=== PATIENT | male | born 1980 | race Caucasian/White ===

== ENCOUNTER → 2023-05-05 15:35 | Outpatient (CLI) | payer OTHER, MEDICAID, SELFPAY ==
--- NOTE | 2023-05-05 | DI.MRI.S_ITS ---
PROCEDURE: MR SHOULDER RT WO CON INDICATIONS: Impingement syndrome of right shoulder TECHNIQUE: Noncontrast oblique coronal T2 fast spin echo with fat saturation, oblique sagittal T1 spin echo and T2 fast spin echo with fat saturation, axial T1 spin echo and T2 fast spin echo with fat saturation through the shoulder. COMPARISON: None. FINDINGS: Image quality: Excellent. Rotator cuff: Low-grade articular and bursal surface partial thickness tear involving distal supraspinatus at its insertion on the humeral head is seen extending to musculotendinous junction. Distal infraspinatus tendinosis is noted. Low-grade intrasubstance partial-thickness tear involving distal subscapularis is seen. No full-thickness rotator cuff tendon rupture. Sagittal images demonstrate no rotator cuff muscle atrophy. Bones and bursae: No bone marrow contusions or fractures. Mild to moderate acromioclavicular joint osteoarthritic changes are seen with joint space narrowing and downward osteophyte formation depressing the musculotendinous junction of supraspinatus. The acromion demonstrates conventional anatomy, without an os acromiale. Small amount of joint effusion and subacromial subdeltoid bursal fluid is seen. No gross loose bodies. Capsule and soft tissues: There is signal abnormality and contour irregularity involving superior anterior labrum at 12 to 2 o'clock position consistent with superior anterior labral tear. Subtle signal abnormality and contour irregularity involving anterior inferior labrum is also seen at 5 to 6 o'clock position. The long head of the biceps tendon appears thickened. The rotator interval appears normal, without fibrosis. The coracohumeral ligament is normal in thickness. IMPRESSION: 1. Low-grade articular and bursal surface partial thickness tear involving distal supraspinatus extending to musculotendinous junction. Distal infraspinatus tendinosis. Low-grade intrasubstance partial-thickness tear involving distal subscapularis. No full-thickness rotator cuff tendon rupture. 2. [id number] acromioclavicular joint osteoarthritis. No fracture or dislocation. Small amount of joint effusion and subacromial subdeltoid bursal fluid, no gross loose bodies. 3. Suggestion of superior anterior labral tear at 12 to 2 o'clock position and anterior-inferior labral tear at 5 to 6 o'clock position. 4. Proximal intra-articular portion of long head of biceps tendinosis. Dictated by: Diomedes Hinojosa M.D. on 05/05/2023 at 23:47 Approved by: Diomedes Hinojosa M.D. on 05/05/2023 at 23:50
== END ==
PROVIDERS: Family Provider Family Medicine; PCP Family Medicine; Referring Provider Orthopaedic Surgery; Visit Provider Orthopaedic Surgery
DX: M75.111 Incomplete rotator cuff tear or rupture of right shoulder, not specified as traumatic (principal); M75.41 Impingement syndrome of right shoulder; M19.011 Primary osteoarthritis, right shoulder; M25.411 Effusion, right shoulder
CPT/HCPCS: 73221